=== PATIENT | female | born 1990 | race Two or more races ===

== ENCOUNTER 2022-09-19 11:33 | Inpatient (IN) | payer OTHER ==
[~2022-09-19] VITALS: Ht 157.5 cm; Wt 68.0 kg
[2022-09-19] MEDS ORDERED: PRENATAL CAPLE1 EAC1 PO (13:32)
== END 2022-09-25 09:54 | disposition home or self-care (01) | DRG 833 ==
LOC: OBS/DEL 11:33 → LDR 16:51 → OB/GYN 09-21 11:12
PROVIDERS: ADMIT Obstetrics & Gynecology Gynecology; ATTEND Obstetrics & Gynecology Gynecology
PROC: 4A1HXCZ Monitoring of Products of Conception, Cardiac Rate, External Approach (ICD-10-PCS; principal; 2022-09-19)
PROC: BY4FZZZ Ultrasonography of Third Trimester, Single Fetus (ICD-10-PCS; 2022-09-19)
PROC: BT43ZZZ Ultrasonography of Bilateral Kidneys (ICD-10-PCS; 2022-09-22)
PROC: BW40ZZZ Ultrasonography of Abdomen (ICD-10-PCS; 2022-09-22)
DX: O23.03 Infections of kidney in pregnancy, third trimester (principal); Z3A.28 28 weeks gestation of pregnancy; Z20.822 Contact with and (suspected) exposure to COVID-19

== ENCOUNTER 2022-11-12 08:43 | Outpatient (CLI) | payer OTHER ==
[~2022-11-12 08:43] MED LIST: PRENATAL CAPLE1 EAC1 PO
== END 2022-11-12 09:30 | disposition home or self-care (01) ==
LOC: NST 08:43
PROVIDERS: ATTEND Obstetrics & Gynecology Maternal & Fetal Medicine
DX: Z34.83 Encounter for supervision of other normal pregnancy, third trimester (principal)

== ENCOUNTER 2022-11-19 12:51 | Outpatient (CLI) | payer OTHER | END 2022-11-19 16:28 | disposition home or self-care (01) | LOC: NST 12:51 | PROVIDERS: ATTEND Obstetrics & Gynecology Gynecology | DX: Z34.83 Encounter for supervision of other normal pregnancy, third trimester (principal) ==

== ENCOUNTER 2022-11-26 11:06 | Inpatient (IN) | payer OTHER ==
[~2022-11-26] VITALS: Ht 157.5 cm; Wt 71.2 kg
== END 2022-12-06 11:53 | disposition home or self-care (01) | DRG 768 ==
LOC: LDR 12-03 23:47 → OB/GYN 12-04 17:40
PROVIDERS: ADMIT Obstetrics & Gynecology Gynecology; ATTEND Obstetrics & Gynecology Gynecology
PROC: 4A1HXCZ Monitoring of Products of Conception, Cardiac Rate, External Approach (ICD-10-PCS; 2022-12-03)
PROC: 10E0XZZ Delivery of Products of Conception, External Approach (ICD-10-PCS; principal; 2022-12-04)
PROC: 0DQR0ZZ Repair Anal Sphincter, Open Approach (ICD-10-PCS; 2022-12-04)
DX: O70.21 Third degree perineal laceration during delivery, IIIa (principal); Z37.0 Single live birth; Z20.822 Contact with and (suspected) exposure to COVID-19; Z3A.38 38 weeks gestation of pregnancy

== ENCOUNTER 2022-12-03 09:27 | Outpatient (CLI) | payer OTHER | END 2022-12-03 10:16 | disposition home or self-care (01) | LOC: NST 09:27 | PROVIDERS: ATTEND Obstetrics & Gynecology | DX: Z34.83 Encounter for supervision of other normal pregnancy, third trimester (principal) ==